=== PATIENT | female | born 1955 | race Hispanic/Latino ===

== ENCOUNTER → 2025-06-13 | Outpatient (CLI) | payer OTHER ==
--- NOTE | 2025-06-13 16:09 | HMCIMG ---
TOE(S) 2+VWS RT REASON: ATTENTION TO RIGHT FIFTH TOE/PAIN TECHNIQUE: 3 views were obtained. FINDINGS: There is no evidence of fracture or dislocation. There is no joint effusion. The soft tissues appear unremarkable. There is no evidence of a radiopaque foreign body. There is severe osteopenia. IMPRESSION: No acute fracture or dislocation. Osteopenia
== END | disposition home or self-care (01) ==
LOC: RAH 10:35
PROVIDERS: ATTEND Internal Medicine
DX: M85.88 Other specified disorders of bone density and structure, other site (principal); M79.674 Pain in right toe(s)
CPT/HCPCS: 73660